=== PATIENT | male | born 1950 | race Caucasian/White ===

== ENCOUNTER 2021-06-15 07:28 | Outpatient (CLI) | payer MEDICARE, OTHER, SELFPAY ==
--- NOTE | ~2021-06-15 | XR_ITS ---
XR shoulder RT min 2V, XR shoulder LT min 2V 06/15/2021 07:54 (accession [id number]), 06/15/2021 07:53 (accession [id number]) Indication: Bicipital tendinitis Procedure: 4 views of each shoulder Comparison: No prior studies for comparison. Findings: No fracture, subluxation or dislocation. There is mild glenohumeral joint osteoarthritis bi laterally. No focal soft tissue abnormality. Visualized lung parenchyma is unremarkable. No foreign b odies. Impression: 1: Mild bilateral symmetric degenerative changes of the glenohumeral joints. Reviewed, dictated and finalized at location A. Impression: 1: Mild bilateral symmetric degenerative changes of the glenohumeral joints. Impression: 1: Mild bilateral symmetric degenerative changes of the glenohumeral joints.
== END 2021-06-15 07:29 | disposition home or self-care (01) ==
PROVIDERS: PCP Internal Medicine; Visit Provider Internal Medicine
DX: M75.21 Bicipital tendinitis, right shoulder (principal); M75.22 Bicipital tendinitis, left shoulder; M19.011 Primary osteoarthritis, right shoulder; M19.012 Primary osteoarthritis, left shoulder
CPT/HCPCS: 73030

== ENCOUNTER 2021-08-23 07:38 | Outpatient (CLI) | payer MEDICARE, OTHER, SELFPAY ==
--- NOTE | ~2021-08-23 | MR_ITS ---
EXAMINATION: MR shoulder LT wo con DATE: 08/23/2021 08:36 INDICATION: Left shoulder pain. TECHNIQUE: Magnetic resonance imaging (MRI) of the left shoulder was performed without intravenous co ntrast. Sequences included axial PD-weighted FS FSE, coronal oblique PD-weighted FS FSE and T2-weight ed FS FSE, and sagittal oblique T2-weighted FS FSE and T1-weighted FSE. COMPARISON: Left shoulder radiographs 06/15/2021 FINDINGS: Coracoacromial arch: Motion artifact is noted. The acromion undersurface is curved in morphology with anterior hook (type III). There is mild acromioclavicular joint osteoarthritis. There is mild subacromial/subdeltoid burs itis. Rotator cuff: There is a bursal-sided, partial-thickness tear of supraspinatus tendon measuring 7 mm anterior to po sterior by 7 mm proximal to distal by 70% tendon thickness. There is mild infraspinatus tendinopathy. Teres minor tendon is normal. Subscapularis tendon is normal. There is no asymmetric fatty atrophy o f the rotator cuff muscle bellies. Biceps tendon and glenoid labrum: Biceps tendon is in bicipital groove. Intra-articular biceps tendon is normal. There is a degenerativ e tear of the glenoid labrum from 9:00 to 12:00 (SLAP tear). Fluid: There is no glenohumeral joint effusion. Bones/cartilage: Humeral head cartilage and glenoid cartilage are normal, but motion artifact decreases sensitivity. IMPRESSION: 1. Bursal-sided, partial-thickness tear of supraspinatus tendon. 2. Mild acromioclavicular joint osteoarthritis. 3. SLAP tear. 4. Mild subacromial/subdeltoid bursitis. Reviewed, dictated and finalized at location A.
== END 2021-08-23 07:39 | disposition home or self-care (01) ==
LOC: ANHIMG 07:41
PROVIDERS: PCP Internal Medicine; Visit Provider Physician Assistant Surgical
DX: M19.012 Primary osteoarthritis, left shoulder (principal); M75.52 Bursitis of left shoulder; S43.432A Superior glenoid labrum lesion of left shoulder, initial encounter; X58.XXXA Exposure to other specified factors, initial encounter
CPT/HCPCS: 73221

== ENCOUNTER 2023-07-11 01:42 | Day surgery (SDC) | payer MEDICARE, OTHER, SELFPAY ==
[2023-06-27 10:41] VITALS: BMI 24.4
--- NOTE | 2023-07-10 09:35 | WPDANESEPPF ---
Anes - Initial Pre Proc Eval Procedure: Operation Date: 07/11/23 10:00 Proposed Procedures p Colonoscopy - Kishan Nieto MD Date/Time: 07/10/23 09:35 Surgeon: Kishan Nieto MD Pre Op Diagnosis: hx colon polyps Patient Data Age: 73 Gender: M Height: 1.85 m Weight: 84 kg Allergies Allergy/AdvReac Type Severity Reaction Status Date / Time RENNY Inhibitors AdvReac Unknown Cough Verified 07/11/23 08:48 amlodipine AdvReac Unknown feet/ankle Verified 07/11/23 08:48 swelling Home Medications Medication Instructions Recorded Confirmed Type cholecalciferol (vitamin D3) 1,250 See Rx Instructions .Route 06/21/23 07/11/23 Rx mcg (50,000 unit) capsule .COMPLEX #8 caps cholecalciferol (vitamin D3) 50 50 mcg PO DAILY #30 caps 06/21/23 07/11/23 Rx mcg (2,000 unit) capsule fenofibrate micronized 134 mg 134 mg PO DAILY 06/27/23 07/11/23 History capsule olmesartan 40 mg tablet 40 mg PO DAILY 06/27/23 07/11/23 History Patient hx anesthesia problems: none Family hx anesthesia problems: none Results Review: All pre-operative results and documents have been reviewed as part of the pre-operative evaluation. [facility] Past Medical History Medical History Abnormal finding of blood chemistry Benign essential hypertension Bilateral shoulder pain BMI 24.0-24.9, adult BMI 25.0-25.9,adult Change in mole Elevated fasting glucose Encounter for Medicare annual wellness exam Encounter for routine adult health examination with abnormal findings Encounter for routine adult health examination without abnormal findings Fall GERD (gastroesophageal reflux disease) Groin rash Hx of colonic polyps Hyperlipidemia Jock itch Low back pain radiating down leg Nevus On termite helper drug therapy Pilonidal cyst 1974 Pre-diabetes Seborrheic dermatitis of scalp Skin lesion Thalassemia Vitamin D deficiency Surgical History Surgical History History of surgery Pilonidal Cyst - 1974 Dupuytren's Contracture - 2005 Dupuytren's Contracture - 07/06/21 Family History Family History Father Family history of cardiovascular disease Acute myocardial infarction Sibling Family history of malignant neoplasm Other Family history of lung cancer Social History Social History Smoking status: Never smoker Second hand tobacco smoke exposure: No Alcohol intake: current Alcohol use details: 1-2 per month Substance use type: does not use Lack of Transportation: No Lack of Food: Never True Current Housing: I Have Housing Concerned About Future Housing: No Difficulty Paying Gas/Electric Bills: No Difficulty Paying for Meds: No Currently Unemployed: No Difficulty w/ Childcare or Family Care: No Living arrangements: with family Occupation/Education: retired Gender identity (if verbalized by the patient): Male Spiritual care concerns: No Anes - Eval Final PreProcedure Day of Procedure 07/10/23 09:35 Patient weight: normal Heart: regular rate and rhythm Lungs: clear to auscultation and normal air movement Airway: Mallampati scale class II Neurological: alert and oriented Last oral intake: >/= 8 hours ASA classification: II Emergent: no Anesthetic plan: proceed Anesthesia type and monitoring: general GIVS and standard monitoring Results Review: All pre-operative results and documents have been reviewed as part of the pre-operative evaluation. Informed Consent: The patient's anesthetic plan and its attendant risks and benefits were discussed with the patient/family/POA. Questions were solicited and answers provided to the satisfaction of the patient/family/POA.
[2023-07-11 08:42] VITALS: BP 129/61; PULSE 59; RESP 18; TEMP 36.1; O2SAT 99; BMI 23.5
[2023-07-11] MEDS: LACTATED RINGERS 1,000 ML 150 ML IV CONT (09:02)
--- NOTE | 2023-07-11 09:08 | PM.HPGS ---
History of Present Illness History of Present Illness Consent: Risks, benefits, and alternatives have been discussed and questions answered. Patient agrees to proceed with procedure. Chief complaint: hx colon polyps Narrative: Wade Keane is a 73 year old male Presents for screening colonoscopy. Patient was found to have benign adenomatous colon polyp removed from the colon at previous exam in 2018. Patient reports his current weight appetite and bowel movements are normal. Patient denies abdominal pain. He has had no bleeding. Family history noncontributory. Review of Systems Review of Systems: Review of systems noncontributory. [facility] Past Medical History Medical History Abnormal finding of blood chemistry Benign essential hypertension Bilateral shoulder pain BMI 24.0-24.9, adult BMI 25.0-25.9,adult Change in mole Elevated fasting glucose Encounter for Medicare annual wellness exam Encounter for routine adult health examination with abnormal findings Encounter for routine adult health examination without abnormal findings Fall GERD (gastroesophageal reflux disease) Groin rash Hx of colonic polyps Hyperlipidemia Jock itch Low back pain radiating down leg Nevus On oysterman drug therapy Pilonidal cyst 1974 Pre-diabetes Seborrheic dermatitis of scalp Skin lesion Thalassemia Vitamin D deficiency Surgical History Surgical History History of surgery Pilonidal Cyst - 1974 Dupuytren's Contracture - 2005 Dupuytren's Contracture - 07/06/21 Family History Family History Father Family history of cardiovascular disease Acute myocardial infarction Sibling Family history of malignant neoplasm Other Family history of lung cancer Social History Social History Smoking status: Never smoker Second hand tobacco smoke exposure: No Alcohol intake: current Alcohol use details: 1-2 per month Substance use type: does not use Lack of Transportation: No Lack of Food: Never True Current Housing: I Have Housing Concerned About Future Housing: No Difficulty Paying Gas/Electric Bills: No Difficulty Paying for Meds: No Currently Unemployed: No Difficulty w/ Childcare or Family Care: No Living arrangements: with family Occupation/Education: retired Gender identity (if verbalized by the patient): Male Spiritual care concerns: No Meds Home Medications and Allergies Home Medications Medication Instructions Recorded Confirmed Type cholecalciferol (vitamin D3) 1,250 See Rx Instructions .Route 06/21/23 07/11/23 Rx mcg (50,000 unit) capsule .COMPLEX #8 caps cholecalciferol (vitamin D3) 50 50 mcg PO DAILY #30 caps 06/21/23 07/11/23 Rx mcg (2,000 unit) capsule fenofibrate micronized 134 mg 134 mg PO DAILY 06/27/23 07/11/23 History capsule olmesartan 40 mg tablet 40 mg PO DAILY 06/27/23 07/11/23 History Allergies Allergy/AdvReac Type Severity Reaction Status Date / Time RENNY Inhibitors AdvReac Unknown Cough Verified 07/11/23 08:48 amlodipine AdvReac Unknown feet/ankle Verified 07/11/23 08:48 swelling Vital Signs Vital Signs - 24 hr 07/11/23 08:42 Temperature 96.9 F L Pulse Rate 59 L Respiratory Rate 18 Blood Pressure 129/61 Pulse Oximetry 99 Oxygen Delivery Room Air Exam Narrative: Physical exam reveals patient to be alert. Vital signs stable. HEENT exam is unremarkable. Patient is anicteric. Lungs are clear to auscultation and to percussion. Heart is without murmur or extra sounds. Abdominal exam bowel sounds are present soft nontender with no hepatosplenomegaly. Digital external rectal exam normal. Assessment and Plan Assessment and plan (1) History of colon polyps: Code(s): Z86.010 - Personal histor
[2023-07-11 10:42] VITALS: BP 113/62; PULSE 57; RESP 18; O2SAT 98
[2023-07-11 10:52] VITALS: BP 123/66; PULSE 53; RESP 14; O2SAT 98
[2023-07-11 11:02] VITALS: BP 128/59; PULSE 54; RESP 12; O2SAT 98
== END 2023-07-11 11:04 | disposition home or self-care (01) ==
PROVIDERS: PCP Internal Medicine; Visit Provider Internal Medicine Gastroenterology
PROC: 0DJD8ZZ Inspection of Lower Intestinal Tract, Via Natural or Artificial Opening Endoscopic (ICD-10-PCS; CPT 45378; principal; 2023-07-11 10:00)
DX: Z12.11 Encounter for screening for malignant neoplasm of colon (principal); K64.8 Other hemorrhoids; K57.30 Diverticulosis of large intestine without perforation or abscess without bleeding; Z86.010 Personal history of colon polyps; I10 Essential (primary) hypertension; E78.5 Hyperlipidemia, unspecified; E55.9 Vitamin D deficiency, unspecified
CPT/HCPCS: G0105; J2704; J7120

== ENCOUNTER 2024-01-10 12:16 | Outpatient (CLI) | payer MEDICARE, OTHER, SELFPAY ==
[2024-01-10 12:53] LABS: Basophils Absolute Auto 0.1 K/mm3 (0.0-0.1); Basophils Percent Auto 1.3 % (0.2-1.2); Eosinophils Absolute Auto 0.2 K/mm3 (0-0.3); Eosinophils Percent Auto 3.6 % (0-4.4); Hematocrit 43.2 % (42.0-52.0); Hemoglobin 13.7 g/dL (14.0-18.0); Immature Granulocyte Absolute 0.01 K/mm3 (0.00-0.031); Immature Granulocyte Percent A 0.2 % (0-0.5); Lymphocytes Absolute Auto 1.84 K/mm3 (0.9-3.2); Lymphocytes Percent Auto 39.5 % (18.3-44.2); Mean Corpuscular HGB Conc 31.7 g/dl (32-36); Mean Corpuscular Hemoglobin 26.4 pg (26-34); Mean Corpuscular Volume 83.2 fl (80-100); Mean Platelet Volume 10.3 fl (7.4-10.4); Monocytes Absolute Auto 0.4 K/mm3 (0.1-0.6); Neutrophils Absolute Auto 2.2 K/mm3 (1.3-6.7); Neutrophils Percent Auto 46.4 % (45.5-73.1); Platelet Count Result 214 k/mm3 (150-375); Red Blood Count 5.19 M/mm3 (4.6-6.20); Red Cell Distribution Width 14.1 % (11.5-14.5); White Blood Count 4.7 K/mm3 (4.5-10.0)
[2024-01-10 13:03] LABS: Anion Gap 7 mmol/L (8-16); Blood Urea Nitrogen 28 mg/dL (9-20); Calcium 9.7 mg/dL (8.4-10.2); Carbon Dioxide 30 mmol/L (22-30); Chloride 103 mmol/L (98-107); Estimated Glomerular Filt Rate > 60; Glucose 115 mg/dL (65-110); Potassium 4.7 mmol/L (3.4-5.0); Sodium 140 mmol/L (137-145)
== END 2024-01-10 12:17 | disposition home or self-care (01) ==
LOC: ANHLAB 12:18
PROVIDERS: PCP Internal Medicine; Visit Provider Internal Medicine
DX: K57.92 Diverticulitis of intestine, part unspecified, without perforation or abscess without bleeding (principal); R10.9 Unspecified abdominal pain; Z79.899 Other long term (current) drug therapy
CPT/HCPCS: 36415; 80048; 85025

== ENCOUNTER 2024-01-10 12:36 | Outpatient (CLI) | payer MEDICARE, OTHER, SELFPAY ==
--- NOTE | ~2024-01-10 | CT_ITS ---
EXAMINATION: CT abdomen pelvis w con DATE: 01/10/2024 13:10 INDICATION: Diverticulitis TECHNIQUE: Computed tomography (CT) of the abdomen and pelvis was performed with 100 mL Omnipaque-350 intravenous contrast. Automated exposure control and iterative reconstruction technique were employe d. The dose-length product was 603.12 mGy-cm. COMPARISON: 03/02/10 FINDINGS: Mild dependent atelectasis in the bilateral lower lobes. Heart size is normal. No pericardial or pleu ral effusion. 1.2 cm cyst at the dome of the liver. Gallbladder, spleen, pancreas, bilateral adrenal glands and kidneys are normal. There is moderate diverticulosis. There is prominent wall thickening a nd surrounding inflammatory stranding at the mid sigmoid colon consistent with diverticulitis. Small bowel and appendix are normal. Bladder is normal. Prostatomegaly. No abscess or free intraperitoneal gas or fluid. No pathologically enlarged abdominal or pelvic lymphadenopathy. Moderate to severe disc height loss at L5-S1. Mild to moderate bilateral hip osteoarthritis. IMPRESSION: 1. Radiographically uncomplicated sigmoid diverticulitis. Reviewed, dictated and finalized at location B.
[2024-01-10 13:06] LABS: Estimated Glomerular Filt Rate > 60
== END 2024-01-10 12:37 | disposition home or self-care (01) ==
LOC: ANHIMG 12:38
PROVIDERS: PCP Internal Medicine; Visit Provider Internal Medicine
DX: K57.92 Diverticulitis of intestine, part unspecified, without perforation or abscess without bleeding (principal)
CPT/HCPCS: 36415; 74177; 80048; 85025; Q9967

== ENCOUNTER 2025-01-29 08:33 | Outpatient (CLI) | payer MEDICARE, OTHER, SELFPAY ==
--- OUTSIDE RECORDS SUMMARY | 2025-01-29 08:50 | XMS_ITS | Clinical Summary ---
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 I told him that could be big part of the nasal congestion. He notes that it really does not bother him and he does not to pursue any treatment right now. Tinnitus of left ear 08/01/2024 Assessment & Plan (08/02/2024 3:50 PM CDT): I explained that his tinnitus is likely due to the hearing loss and he already understands that. I do not feel that there is really a whole lot more that can be done for it. He does not want to pursue anything he notes. Sensorineural hearing loss ( SNHL) of left ear with unrestricted hearing of right ear 08/01/2024 Assessment & Plan (08/02/2024 3:49 PM CDT): His hearing test shows unilateral high-frequency left-sided sensorineural hearing loss with 100% discrimination scores. I told him that he has a fairly mild loss. I do not think he would benefit from amplification nor does he think he needs it. I recommended no further intervention. We did briefly discuss an MRI scan to rule out an acoustic nerve tumor. He understands that if he has something like that it is a very slowly progressive problem and there is no urgency to do any type of imaging. He would prefer to wait and see how things go. If he notices a sudden change in his hearing he will return. Encounters Date Type Department Care Team Description 01/17/2025 3:00 PM CDT Ancillary Procedure [facility] at [address] [place] [id number] Atrial fibrillation, unspecified type (HCC) from Last 3 Months Surgical History Surgery Date Site/Laterality Comments PILONIDAL CYSTECTOMY 10/30/1975 - 10/29/1976 Medical History Medical History Date Comments Tinnitus Family History Medical History Relation Name Comments Hypertension Brother Kidney disease Brother Cancer Father Bladder Heart disease Father Arthritis Mother Hypertension Mother Cancer Sister Diabetes Sister Relation Name Status Comments Brother Father Mother Sister Social History Tobacco Use Types Packs/Day Years Used Date Smoking Tobacco: Never Smokeless Tobacco: Never Sex and Gender Information Value Date Recorded Sex Assigned at Not on file 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 Gender Identity Not on file Sexual Orientation Not on file Obstetrics History Last Filed Vital Signs Vital Sign Reading Time Taken Comments Blood Pressure - - Pulse - - Temperature - - Respiratory Rate 18 08/01/2024 10:04 AM CDT Oxygen Saturation - - Inhaled Oxygen Concentration - - Weight 83.9 kg (185 lb) 08/01/2024 10:04 AM CDT Height 185.4 cm (6' 1 ) 08/01/2024 10:04 AM CDT Body Mass Index 24.41 08/01/2024 10:04 AM CDT Plan of Treatment Health Maintenance Due Date Last Done Comments Colon Cancer Screening-Colonoscopy 1950 Depression Screening 1950 Fall Risk Assessment 1950 Hepatitis C Screening 1950 DTaP/Tdap/Td Vaccine (1 - Tdap) 1962 Hepatitis B Screening 1969 Pneumococcal vaccine 65+ (1 of 1 - PCV) 2001 Zoster Vaccine (1 of 2) 2001 Well Visit 65+ 02/20/2016 Covid-19 Vaccine (3 - 2023- season) 2024, 12/31/2020 Influenza Vaccine (Season Ended) 2025 08/14/20 20 Procedures Procedure Name Priority Date/Time Associated Diagnosis Comments TRANSTHORACIC ECHO (TTE) COMPLETE W DOPPLER/CF WO CONTRAST Routine 01/17/2025 3:29 PM CDT Atrial fibrillation, unspecified type (HCC) from Last 3 Months Results * TRANSTHORACIC ECHO (TTE) COMPLETE W DOPPLER/CF WO CONTRAST (01/17/2025 3:29 PM CDT) LV EF 60-65 % CONS SCIMAGE Anatomical Region Laterality Modality Ultrasound 01/17/2025 2:54 PM CDT Narrative 01/17/2025 4:40 PM CDT [facility] [address], [address], [place] [address] P:[phone] P:[phone] Echocardiographic Report Patient Name: LAURA KEANE T : 1950 Study Date: 01/17/2025 2:54:16 PM Gender: M Tech: Location: [facility] Ref Provider: JUAN ESQUIVEL Height(Cm): 185 BSA: 2.08 Weight(Kg): 83.9 Heart Rate: 61 BP: 124 / 76 Quality: Good Order Provider: JUAN ESQUIVEL PROCEDURES: Echocardiographic Report: Transthoracic echocardiogram with complete 2D, M-Mode, and color Doppler examination. With Strain Analysis. INDICATIONS: Atrial Fibrillation. MEASUREMENTS: 2D/MM Value Range Doppler Value Range EF Mod BP 64 % [ 52 - 72 ] AV Mean PG 7 mmHg EF Teich MM 61 % [ 52 - 72 ] AV Peak Steffen 2.01 m/s [ 1.00 - 1.70 ] Estimated EF 60-65 % AV Peak PG 16 mmHg LVIDd 2D 4.40 cm [ 4.20 - 5.80 ] AV VTI 41.36 cm LVIDd MM 5.19 cm [ 4.20 - 5.80 ] LVOT Diam 2.03 cm [ 1.70 - 2.10 ] LVIDs 2D 2.64 cm [ 2.50 - 4.00 ] LVOT Peak Steffen 1.18 m/s [ 0.70 - 1.10 ] LVIDs MM 3.47 cm [ 2.50 - 4.00 ] LVOT VTI 23.54 cm LVPWd 2D 0.96 cm [ 0.60 - 1.00 ] MV E Peak Steffen 0.97 m/s [ 0.60 - 1.30 ] LVPWd MM 0.97 cm [ 0.60 - 1.00 ] MV A Peak Steffen 0.84 m/s [ 1.00 - 1.20 ] IVSd 2D 1.10 cm [ 0.60 - 1.00 ] MV Decel Time 172 msec [ 104 - 258 ] IVSd MM 0.91 cm [ 0.60 - 1.00 ] PV Peak Steffen 1.85 m/s [ 0.40 - 0.80 ] LA Dimension MM 3.86 cm [ 3.00 - 4.00 ] TR Peak Steffen 2.56 m/s [ 1.00 - 2.80 ] AoR Diam MM 3.28 cm [ 3.10 - 3.70 ] TR Peak PG 26 mmHg LA Volume Index 36 cc/m2 [ 16 - 34 ] RVSP 34.00 mmHg [ 10.00 - 36.00 ] ACS MM 1.69 cm [ 1.50 - 2.60 ] Lateral E` 0.13 m/s [ 0.10 - 0.15 ] E/E` 7 2D/MM Value Range Doppler Value Range - FINDINGS: Interpretation Site: Exam was interpreted at [facility]. Left Ventricle: Normal left ventricular systolic function. No focal wall motion abnormalities. Normal left ventricular size. Normal left ventricular wall thickness. Normal left ventricular diastolic function. Ejection fraction is measured at 64 %. Ejection Fraction is visually estimated to be 60-65 %. Global Longitudinal Strain is -19 %. GLS is normal. Right Ventricle: Normal right ventricular size. Normal right ventricular systolic function. Left Atrium: There is mild enlargement of left atrium. Right Atrium: The right atrium is normal in size. Atrial Septum: Normal atrial septum. Mitral Valve: Normal appearance of the mitral valve. Mild mitral valve regurgitation. There is no hemodynamically significant mitral stenosis by Doppler. Aortic Valve: Normal appearance of the aortic valve. No evidence of hemodynamically significant aortic stenosis by Doppler. Trileaflet aortic valve. Trace aortic valve regurgitation. Tricuspid Valve: Normal appearance of the tricuspid valve. Normal right ventricular systolic pressure. Estimated peak RVSP is 34 mmHg. Mild tricuspid regurgitation. Pulmonic Valve: Normal appearance of the pulmonic valve. No pulmonic stenosis. Trivial regurgitation in the pulmonic valve. Pericardium: Normal pericardium with no significant pericardial effusion. Aorta: Normal aortic root. IVC: Normal size and normal respiratory collapse consistent with normal right atrial pressure (<5 mmHg). CONCLUSIONS: Normal left ventricular systolic function. No focal wall motion abnormalities. Normal left ventricular size. Normal left ventricular wall thickness. Normal left ventricular diastolic function. Ejection fraction is measured at 64 %. Ejection Fraction is visually estimated to be 60-65 %. Global Longitudinal Strain is -19 %. GLS is normal. There is mild enlargement of left atrium. Mild mitral valve regurgitation. Mild tricuspid regurgitation. Normal sinus rhythm. Electronically Signed By: Francesco Moncada MD 01/17/2025 4:40:20 PM CDT Procedure Note Francesco Moncada MD - 01/17/2025 [facility] [address] , [address], [place] [address] P:[phone] P:[phone] Echocardiographic Report Patient Name: LAURA KEANE T : 1950 Study Date: 01/17/2025 2:54:16 PM Gender: M Tech: Location: W Ref Provider: JUAN ESQUIVEL Height(Cm): 185 BSA: 2.08 Weight(Kg): 83.9 Heart Rate: 61 BP: 124 / 76 Quality: Good Order Provider: JUAN ESQUIVEL PROCEDURES: Echocardiographic Report: Transthoracic echocardiogram with complete 2D, M-Mode, and color Dopplerexamination. With Strain Analysis. INDICATIONS: Atrial Fibrillation. MEASUREMENTS: 2D/MM Value Range Doppler ValueRange EF Mod BP 64 % [ 52 - 72 ] AV Mean PG 7mmHg EF Teich MM 61 % [ 52 - 72 ] AV Peak Steffen 2.01m/s [ 1.00 - 1.70 ] Estimated EF 60-65 % AV Peak PG 16mmHg LVIDd 2D 4.40 cm [ 4.20 - 5.80 ] AV VTI 41.36cm LVIDd MM 5.19 cm [ 4.20 - 5.80 ] LVOT Diam 2.03 cm[ 1.70 - 2.10 ] LVIDs 2D 2.64 cm [ 2.50 - 4.00 ] LVOT Peak Steffen 1.18m/s [ 0.70 - 1.10 ] LVIDs MM 3.47 cm [ 2.50 - 4.00 ] LVOT VTI 23.54cm LVPWd 2D 0.96 cm [ 0.60 - 1.00 ] MV E Peak Steffen 0.97m/s [ 0.60 - 1.30 ] LVPWd MM 0.97 cm [ 0.60 - 1.00 ] MV A Peak Steffen 0.84m/s [ 1.00 - 1.20 ] IVSd 2D 1.10 cm [ 0.60 - 1.00 ] MV Decel Time 172msec [ 104 - 258 ] IVSd MM 0.91 cm [ 0.60 - 1.00 ] PV Peak Steffen 1.85m/s [ 0.40 - 0.80 ] LA Dimension MM 3.86 cm [ 3.00 - 4.00 ] TR Peak Steffen 2.56m/s [ 1.00 - 2.80 ] AoR Diam MM 3.28 cm [ 3.10 - 3.70 ] TR Peak PG 26mmHg LA Volume Index 36 cc/m2 [ 16 - 34 ] RVSP 34.00mmHg [ 10.00 - 36.00 ] ACS MM 1.69 cm [ 1.50 - 2.60 ] Lateral E` 0.13m/s [ 0.10 - 0.15 ] E/E` 7 2D/MM Value Range Doppler ValueRange - FINDINGS: Interpretation Site: Exam was interpreted at [facility]. Left Ventricle: Normal left ventricular systolic function. No focal wall motionabnormalities. Normal left ventricular size. Normal left ventricular wall thickness. Normal leftventricular diastolic function. Ejection fraction is measured at 64 %. EjectionFraction is visually estimated to be 60-65 %. Global Longitudinal Strain is -19 %. GLS isnormal. Right Ventricle: Normal right ventricular size. Normal right ventricular systolicfunction. Left Atrium: There is mild enlargement of left atrium. Right Atrium: The right atrium is normal in size. Atrial Septum: Normal atrial septum. Mitral Valve: Normal appearance of the mitral valve. Mild mitral valve regurgitation.There is no hemodynamically significant mitral stenosis by Doppler. Aortic Valve: Normal appearance of the aortic valve. No evidence of hemodynamicallysignificant aortic stenosis by Doppler. Trileaflet aortic valve. Trace aortic valveregurgitation. Tricuspid Valve: Normal appearance of the tricuspid valve. Normal right ventricularsystolic pressure. Estimated peak RVSP is 34 mmHg. Mild tricuspid regurgitation. Pulmonic Valve: Normal appearance of the pulmonic valve. No pulmonic stenosis. Trivialregurgitation in the pulmonic valve. Pericardium: Normal pericardium with no significant pericardial effusion. Aorta: Normal aortic root. IVC: Normal size and normal respiratory collapse consistent with normal rightatrial pressure (<5 mmHg). CONCLUSIONS: Normal left ventricular systolic function. No focal wall motionabnormalities. Normal left ventricular size. Normal left ventricular wall thickness. Normal leftventricular diastolic function. Ejection fraction is measured at 64 %. EjectionFraction is visually estimated to be 60-65 %. Global Longitudinal Strain is -19 %. GLS isnormal. There is mild enlargement of left atrium. Mild mitral valve regurgitation. Mild tricuspid regurgitation. Normal sinus rhythm. 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
--- OUTSIDE RECORDS SUMMARY | 2025-01-29 08:50 | XMS_ITS | Referral Summary ---
Author Organization [facility] Address [address] [place] [address] Care Team Providers Care [employer] Worker Name Role Phone Juan Esquivel MD Primary Care Provider [phone] Encounters Date Type Department Care Team Description 01/17/2025 3:00 PM CDT Ancillary Procedure [facility] Cardiology at [address] [place] [id number] Atrial fibrillation, unspecified type (HCC) from Last 3 Months Allergies No known active allergies Medications fenofibrate [...] change in his hearing he will return. 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. Left Ventricle: Normal left ventricular systolic function. [...] Procedure Note Francesco Moncada MD - 01/17/2025 [facility] Cardiology [address], [address], [place] [address] P:[phone] P:[phone] Echocardiographic Report Patient Name: LAURA KEANE T [...] FINDINGS: Interpretation Site: Exam was interpreted at [facility]. Left Ventricle: Normal left ventricular systolic function. [...] lt from Last 3 Months Insurance [employer] [place] [employer] [place] Care Teams [employer] Worker Relationship Specialty Start Date End Date Juan Esquivel MD [address] [place] [address] PCP - General Internal Medicine 07/06/21
--- NOTE | 2025-02-14 21:00 | P.SLEEP_ITS ---
Sleep Study - Home Unattended Date of Study: 01/29/25 Ordering Provider: Juan Young MD Interpreting Provider: Venus Abdi MD Home Sleep Study Type: Watch PAT Height: 1.85 m Weight: 86.636 kg Body Mass Index: 25.2 Neck Circumference (inches): 16 [place]oven: 5 Reason for Sleep Study New onset atrial fibrillation; concern sleep-disordered breathing with cardiac disease Sleep History Wade Keane is a 74-year-old man with new onset atrial fibrillation noted on his wellness exam. Dr. 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 The patient has been asymptomatic. He never awakens from sleep feeling short of breath. He rarely wakes at night with heartburn, belching or coughing.??He rarely snores, however never snores loudly enough that others complain. He never has trouble sleeping when he has a cold. He never wakes up gasping for breath during the night. He never has breathing problems at night. He never sweats excessively at night. He never notices his heart pounding or beating irregularly during the night. He never falls asleep during the day. He never falls asleep involuntarily, never falls asleep while driving. He never experiences loss of muscle tone with strong emotion. He never has daytime difficulty at work due to excessive sleepiness. He never feels paralyzed on waking or falling asleep. He never experiences vivid dreams upon waking or falling asleep. He never feels afraid of going to sleep. He never has nightmares. He occasionally recalls his dreams. He frequently has thoughts racing through his mind. He rarely feels sad or depressed. He frequently feels anxiety. He never notices parts of his body jerk. He never kicks during the night. He never feels crawling or aching feelings in his legs. He never feels leg pain at night. He never has morning jaw pain, never grinds his teeth at night. He rarely feels bothered by pain during the day, never awakened by pain during the night. He rarely wakes up feeling stiff in the morning, and he rarely wakes feeling sore or achy. He never awakens with pain in his neck, spine, or joints. Normal bedtime is 8:30 p.m., falling asleep 30 minute, waking twice at night, goes to the bathroom and returns to sleep within an hour.. Wake time is 5:00 a.m.. He typically gets 8 hours of sleep per night. He does not take naps in the afternoon or evening. He feels better in the morning compared to other times of day. Habits:??Tobacco: Never smoker Caffeine: 1 serving daily Alcohol: none Recreational substances: none PMFSH Past Medical History Medical History Tinnitus Abdominal pain Fall Encounter for routine adult health examination with abnormal findings Skin lesion Seborrheic dermatitis of scalp Nevus Low back pain radiating down leg Groin rash Jock itch BMI 24.0-24.9, adult Bilateral shoulder pain Change in mole Pre-diabetes GERD (gastroesophageal reflux disease) Encounter for Medicare annual wellness exam Thalassemia Vitamin D deficiency Abnormal finding of blood chemistry Elevated fasting glucose BMI 25.0-25.9,adult Encounter for routine adult health examination without abnormal findings On intermediate drug therapy Hyperlipidemia Benign essential hypertension Pilonidal cyst 1974 Surgical History Surgical History History of surgery Pilonidal Cyst - 1974 Dupuytren's Contracture - 2005 Dupuytren's Contracture - 07/06/21 Family History Family History Father Family history of cardiovascular disease Acute myocardial infarction Sibling Family history of malignant neoplasm Other Family history of lung cancer Social History Social History Smoking status: Never smoker Second hand tobacco smoke exposure: No Alcohol intake: current Alcohol use details: 1-2 per month Substance use type: does not use Lack of Transportation: No Lack of Food: Never True Current Housing: I Have Housing Concerned About Future Housing: No Difficulty Paying Gas/Electric Bills: No Difficulty Paying for Meds: No Currently Unemployed: No Difficulty w/ Childcare or Family Care: No Living arrangements: with family Occupation/Education: retired Gender identity (if verbalized by the patient): Male Spiritual care concerns: No Medications Home Medications ?Medication ?Instructions ?Recorded ?Confirmed ?Type cholecalciferol (vitamin D3) 50 100 mcg (2 x 50 mcg (2,000 unit)) 12/22/23 01/15/25 Rx mcg (2,000 unit) capsule PO DAILY #30 caps fenofibrate micronized 134 mg 134 mg PO DAILY #90 caps 09/17/24 01/15/25 Rx capsule olmesartan 40 mg tablet 40 mg PO DAILY #90 tabs 09/17/24 01/15/25 Rx apixaban 5 mg tablet (Eliquis) 5 mg PO BID #60 tabs 02/03/25 Rx Sleep Procedure The sleep study was completed using [employer] a technically adequate device with seven channels: peripheral arterial tone, actigraphy, body position, snore, respiratory movement, pulse oximetry, sleep staging, and heart rate. Prior to using the device, the patient received verbal and written instructions for its application and was provided with the help desk phone number for additional telephonic instruction with 24-hour availability of qualified personnel to answer questions. The patient performed the test correctly. Due to some unexplained event, some of the data was not obtainable. He had a noisy signal from the peripheral arterial tonometry, obscuring the sleep staging. Sleep Architecture The total recording time is 8 hrs, 11 min. The total sleep time is 7 hrs, 19 min. Sleep latency is 18 minutes. The patient had 8 episodes of waking. Sleep architecture was not able to be determined due to the noisy signal of the PAT, peripheral arterial tonometry. No information regarding amout of light sleep, deep sleep and REM sleep. The patient spent 10.7% of total sleep time in the supine position. Sleep efficiency was 89%. Respiratory Analysis The overall AHI (pAHI 3%:) is 15.5. The central AHI is 0.6. The AHI was not obtainable in NREM and REM sleep. The AHI was 35.2 in Supine and 5.6 in Non- supine sleep. Percent of Adan Briggs respirations is 0.0. Oximetry Data The oxygen desaturation index (ALISHA 4%:) is 5.6. The mean saturation is 93%, and the lowest saturation is 88%. Time spent with saturation < 88% is 0.0 minutes. Snoring Profile Snoring average intensity is 41 dB. The patient snored above 45 decibels for 24.7 minutes, 5.6% of sleep time. Cardiac Profile The average pulse is 42 bpm, the lowest pulse is 30 beats per minutes, and the highest pulse is 62 beats per minute. The patient had average 6.5 premature beats per minute. Assessment and Plan Assessment and Plan (1) Obstructive sleep apnea: Code(s): G47.33 - Obstructive sleep apnea (adult) (pediatric) Status: Acute Assessment and Plan: This home sleep test using WatchPat on 01/29/2025 shows at least moderate obstructive sleep apnea and hypoxemia with snoring. Sleep staging was not obtainable on this particular study. Given his new onset atrial fibrillation, critically high apnea-hypopnea index in the supine position, 35.2, with moderate snoring I am recommending in-lab CPAP titration. Patient needs to have a sleep aid available to use, if needed, to get to sleep and stay asleep. He should not nap on the day of the study. Consider Ambien 5-10 mg or Lunesta 2-3 mg. He had bradycardia as low as 30 beats per minute. This is below normal. No arrhythmias detected. Data The data obtained during this sleep study is adequate for interpretation. Certification This sleep study has been reviewed by a board certified sleep medicine physician.
[2025-02-17 07:24] VITALS: BMI 25.2
== END 2025-01-30 10:41 | disposition home or self-care (01) ==
LOC: ANHCSM 08:34
PROVIDERS: PCP Internal Medicine; Visit Provider Internal Medicine
DX: G47.10 Hypersomnia, unspecified (principal); R06.83 Snoring; R53.83 Other fatigue; I48.0 Paroxysmal atrial fibrillation; G47.33 Obstructive sleep apnea (adult) (pediatric)
CPT/HCPCS: 95806